=== PATIENT | female | born 1985 | race Caucasian/White ===

== ENCOUNTER 2017-05-10 16:50 | Emergency (ER) | payer OTHER ==
[~2017-05-10 16:50] MED LIST: Iopamidol 370 76% 100 ML VIAL ONE
[2017-05-10] MEDS ORDERED: Ketorolac Tromethamine 30 MG/ML VIAL ONE (17:32)
[2017-05-10] MEDS ORDERED: Ondansetron HCl/PF 4 MG/2 ML Vial ONE (17:32)
[2017-05-10 17:40] LABS: #Basophils 0.1 thou/uL (0.0-0.2); #Eosinphils 0.1 thou/uL (0.0-0.7); #Lymphocytes 2.8 thou/uL (1.20-3.40); #Monocytes 0.7 thou/uL (0.11-0.59); #Neutrophils 5.2 thou/uL (1.40-6.50); %Lymphocytes 31.4 % (21.0-51.0); %Monocytes 7.7 % (0.0-10.0); %Neutrophils 58.8 % (42.0-75.0); Hemoglobin 11.3 g/dL (12.0-16.0); Mean Corpuscular HGB CONC 32.5 g/dL (32.0-36.0); Mean Corpuscular Hemoglobin 30.7 pg (27.0-31.0); Mean Corpuscular Volume 94.5 fl (81.0-99.0); Mean Platelet Volume 6.6 fL (7.4-10.4); Platelet Count 234 thou/uL (130-400); RBC Distribution Width 11.4 % (11.5-14.5); Red Blood Cell (RBC) Count 3.68 mill/uL (4.20-5.40); White Blood Cell (WBC) Count 8.8 thou/uL (4.8-10.8)
[2017-05-10 17:44] LABS: BHCG - Serum Negative (NEGATIVE); Pregs Control Background? CLEAR/WHITE (CLR/WHITE); Pregs Control Bar Appear? YES (CONTROL BAR)
[2017-05-10 17:49] LABS: ALT (SGPT) 75 U/L (8-55); AST (SGOT) 34 U/L (5-34); Albumin 3.8 g/dL (3.5-5.0); Alkaline Phosphatase 104 U/L (40-150); Anion Gap 13 mmol/L (10-20); BUN (Urea Nitrogen) 13 mg/dL (7.0-18.7); Bilirubin, Total 0.1 mg/dL (0.2-1.2); Calc. Creatinine Clearance 0 mL/min (70-130); Calcium 9.1 mg/dL (7.8-10.44); Carbon Dioxide 28 mmol/L (22-29); Chloride 105 mmol/L (98-107); Estimated GFR-MDRD 84; Globulin 2.6 g/dL (2.4-3.5); Glucose 85 mg/dL (70-105); Lipase 13 U/L (8-78); Potassium 4.1 mmol/L (3.5-5.1); Protein, Total 6.4 g/dL (6.0-8.3); Sodium 142 mmol/L (136-145)
[2017-05-10] MEDS ORDERED: Acetaminophen/Codeine 30-300mg Tablet ONE (18:40)
--- NOTE | 2017-05-10 19:19 | CT ---
CT OF THE ABDOMEN AND PELVIS WITH IV CONTRAST 05/10/17 PROVIDED CLINICAL HISTORY: Abdominal pain status post recent appendectomy. FINDINGS: Comparison is made with the CT examination performed 12/25/16. The visualized lung bases are free of significant opacity. The solid abdominal organs demonstrate an unremarkable CT appearance. There is mild stranding at the subcutaneous fat about the umbilicus. There is a small amount of free pelvic fluid. There is no evidence for a focal fluid collection to suggest abscess. There is no bowel dilatation or free air apparent. Changes of prior cholecystectomy are seen. The uterus is not visualized and presumed surgically absen t. Contrast material is present within the colon, presumably on the basis of a CT scan before the pat ient's surgery. The osseous structures demonstrate no concerning osteoblastic or osteolytic lesions. IMPRESSION: 1. Nonspecific stranding of the subcutaneous fat about the umbilicus. Please correlate concerns for cellulitis. 2. Small amount of nonspecific free pelvic fluid. POS: [facility]
== END 2017-05-10 18:49 | disposition home or self-care (01) ==
LOC: SCSER 16:50
DX: G89.18 Other acute postprocedural pain (principal); R10.12 Left upper quadrant pain; F41.9 Anxiety disorder, unspecified; Z79.899 Other long term (current) drug therapy
CPT/HCPCS: 74177; 80053; 83690; 84703; 85025; 96361; 96372; 96374; J1885; J2405

== ENCOUNTER 2017-11-21 21:14 | Emergency (ER) | payer OTHER ==
[2017-11-21] MEDS ORDERED: Ketorolac Tromethamine 60 MG/2 ML VIAL ONE (21:55)
== END 2017-11-21 22:39 | disposition home or self-care (01) ==
LOC: ERS 21:14
DX: K02.9 Dental caries, unspecified (principal); F41.9 Anxiety disorder, unspecified; Z79.899 Other long term (current) drug therapy
CPT/HCPCS: 96372; J1885

== ENCOUNTER 2017-11-23 12:27 | Emergency (ER) | payer OTHER ==
[2017-11-23] MEDS ORDERED: Ketorolac Tromethamine 30 MG/ML VIAL ONE (12:50)
== END 2017-11-23 13:09 | disposition home or self-care (01) ==
LOC: SCSER 12:27
DX: K02.9 Dental caries, unspecified (principal); Z79.899 Other long term (current) drug therapy
CPT/HCPCS: 96372; J1885

== ENCOUNTER 2018-07-24 17:52 | Emergency (ER) | payer BC, OTHER | END 2018-07-24 18:47 | disposition home or self-care (01) | LOC: ERS 17:52 | DX: M62.838 Other muscle spasm (principal); Z79.899 Other long term (current) drug therapy | CPT/HCPCS: 99283 ==